=== PATIENT | male | born 2000 | race American Indian/Alaskan Native ===

== ENCOUNTER 2020-08-08 13:26 | Emergency (ER) | payer SELFPAY ==
--- NOTE | 2020-08-08 15:33 | Emergency Department Report ---
ED General Adult HPI - General Chief complaint: Alcohol Stated complaint: VOMITING Time Seen by Provider: 08/08/20 13:45 Source: patient Mode of arrival: Ambulatory Limitations: No Limitations - History of Present Illness Initial comments: 19 y/o male comes in stating he had drunk alcohol last night. No pmh. Severity scale (0 -10): 0 - Related Data Previous Rx's Medication Instructions Recorded Last Taken Type Acetaminophen/Codeine [Tylenol #3] 1 tab PO Q6H PRN #20 tab 03/20/15 Unknown Rx Ibuprofen [Motrin] 600 mg PO Q8H PRN #40 tablet 03/20/15 Unknown Rx Allergies Allergy/AdvReac Type Severity Reaction Status Date / Time No Known Allergies Allergy Unverified 03/20/15 12:34 ED Review of Systems ROS: Stated complaint: VOMITING Other details as noted in HPI ED Past Medical Hx - Past Medical History Previous Medical History?: No - Surgical History Past Surgical History?: No - Social History Smoking Status: Never Smoker Substance Use Type: None - Medications Home Medications: Home Medications Medication Instructions Recorded Confirmed Last Taken Type Acetaminophen/Codeine [Tylenol #3] 1 tab PO Q6H PRN #20 tab 03/20/15 Unknown Rx Ibuprofen [Motrin] 600 mg PO Q8H PRN #40 tablet 03/20/15 Unknown Rx ED Physical Exam - General Limitations: No Limitations General appearance: alert - Head Head exam: Present: atraumatic, normocephalic - Eye Eye exam: Present: normal appearance - ENT ENT exam: Present: mucous membranes moist - Neck Neck exam: Present: normal inspection, full ROM - GI/Abdominal GI/Abdominal exam: Present: soft. Absent: distended, tenderness, guarding - Extremities Exam Extremities exam: Present: normal inspection, full ROM - Back Exam Back exam: Present: normal inspection, full ROM - Neurological Exam Neurological exam: Present: alert, oriented X3, normal gait - Psychiatric Psychiatric exam: Present: normal affect, normal mood - Skin Skin exam: Present: warm, dry, intact, normal color. Absent: rash ED Course Vital Signs 08/08/20 13:34 Temperature 98.0 F Pulse Rate 66 Respiratory 17 Rate O2 Sat by Pulse 100 Oximetry ED Medical Decision Making - Medical Decision Making 19 y/o male comes in stating he had drunk alcohol last night. No pmh. Patient reports that he has been able to drink and hold down Gatorade. Blood alcohol level is <2 and no longer vomiting. Patient instructed to continue to drink fluid and advance his diet. Critical care attestation.: If time is entered above; I have spent that time in minutes in the direct care of this critically ill patient, excluding procedure time. ED Disposition Clinical Impression: Nausea & vomiting Disposition: DC-01 TO HOME OR SELFCARE Is pt being admited?: No Does the pt Need Aspirin: No Condition: Stable Instructions: Acute Nausea and Vomiting (ED) Additional Instructions: Blood alcohol level is <2 and no longer vomiting. Patient instructed to continue to drink fluid and advance his diet. Stay away from binge drinking. Referrals: PRIMARY CARE, [Primary Care Provider] - 3-5 Days [facility] [Provider Group] - 3-5 Days
== END 2020-08-08 15:35 | disposition home or self-care (01) ==
LOC: ED 13:26
DX: R11.2 Nausea with vomiting, unspecified (principal); Z79.899 Other long term (current) drug therapy
CPT/HCPCS: 36415; 80320; 99283; G0480